=== PATIENT | male | born 1995 | race Hispanic/Latino ===

== ENCOUNTER 2017-06-12 18:51 | Emergency (ER) | payer OTHER ==
[~2017-06-12] VITALS: Ht 170.2 cm; Wt 57.4 kg
[2017-06-12 20:23] LABS: HEMATOCRIT 44.1 % (38.0-50.0); HEMOGLOBIN 16.1 G/DL (12.5-16.6); MCH 28.4 PG (29.0-34.0); MCHC 36.5 G/DL (30.0-36.0); MCV 77.9 FL (86-99); PLATELET COUNT 258 K/uL (156-360); RBC DIS.WIDTH-CV 12.6 % (11.8-14.6); RBC DIS.WIDTH-SD 35.6 % (39-53); RED BLOOD COUNT 5.66 M/uL (4.00-5.50); WHITE BLOOD COUNT 10.8 K/uL (4.1-10.2)
[2017-06-12 20:30] LABS: CHLORIDE 101 mEq/L (99-109); SODIUM 137 mEq/L (136-147)
[2017-06-12 20:32] LABS: GLUCOSE 103 mg/dL (70-99)
[2017-06-12 20:36] LABS: GFR ESTIMATE (CALCULATED) > 59 mL/min/ (58.99-99999)
[2017-06-12 20:37] LABS: UREA NITROGEN (BUN) 17 mg/dL (9-23)
[2017-06-12 21:05] VITALS: BP 118/73
[2017-06-12] MEDS ORDERED: ZOFRAN ODT4 MG PO (23:11)
== END 2017-06-12 21:14 | disposition home or self-care (01) ==
LOC: EME 18:51
PROVIDERS: Physician Assistant
DX: R42 Dizziness and giddiness (principal)
CPT/HCPCS: 70450; 80048; 85027; 99281; 99284; J8540

== ENCOUNTER 2017-06-16 07:42 | Emergency (ER) | payer OTHER ==
[~2017-06-16] VITALS: Ht 167.6 cm; Wt 54.8 kg
[~2017-06-16 07:42] MED LIST: ZOFRAN ODT4 MG PO
[2017-06-16 08:43] LABS: HEMATOCRIT 42.2 % (38.0-50.0); HEMOGLOBIN 15.3 G/DL (12.5-16.6); MCH 28.5 PG (29.0-34.0); MCHC 36.3 G/DL (30.0-36.0); MCV 78.6 FL (86-99); PLATELET COUNT 239 K/uL (156-360); RBC DIS.WIDTH-CV 12.7 % (11.8-14.6); RBC DIS.WIDTH-SD 36.1 % (39-53); RED BLOOD COUNT 5.37 M/uL (4.00-5.50); WHITE BLOOD COUNT 7.5 K/uL (4.1-10.2)
[2017-06-16 08:59] LABS: CHLORIDE 102 mEq/L (99-109); POTASSIUM 4.2 mEq/L (3.7-5.4); SODIUM 138 mEq/L (136-147)
[2017-06-16 09:01] LABS: GLUCOSE 90 mg/dL (70-99)
[2017-06-16 09:04] LABS: CREATININE 0.9 mg/dL (0.6-1.3); GFR ESTIMATE (CALCULATED) > 59 mL/min/ (58.99-99999)
[2017-06-16 09:05] LABS: UREA NITROGEN (BUN) 15 mg/dL (9-23)
[2017-06-16 12:34] LABS: APPEARANCE CLOUDY ((CLEAR)); BILIRUBIN NEGATIVE; BLOOD NEGATIVE; COLOR YELLOW ((YELLOW)); GLUCOSE (STRIP) NEGATIVE; KETONES 5; LEUKOCYTES NEGATIVE; NITRITE NEGATIVE; PROTEIN (STRIP) 30; SPECIFIC GRAVITY 1.025 (1.000-1.030); UROBILINOGEN 0.2 MG/DL (0.2-1.0)
[2017-06-16 12:55] LABS: RED BLOOD CELLS 0-5 /HPF (0-5); WHITE BLOOD CELLS 0-5 /HPF (0-5)
[2017-06-16 12:56] LABS: AMORPHOUS PHOSPHATE CRYSTALS 1+; BACTERIA RARE /HPF; EPITHELIAL CELLS NONE SEEN /HPF; MUCUS 2+ /LPF; UCUL ADDED? NO
[2017-06-16] MEDS ORDERED: REGLAN5 MG PO (13:26)
[2017-06-16] MEDS ORDERED: PHENERGAN25 MG PR (13:26)
[2017-06-16 14:02] VITALS: BP 106/71
== END 2017-06-16 14:04 | disposition home or self-care (01) ==
LOC: EME 07:42
PROVIDERS: Nurse Practitioner Family
DX: G43.909 Migraine, unspecified, not intractable, without status migrainosus (principal); R11.2 Nausea with vomiting, unspecified; R42 Dizziness and giddiness
CPT/HCPCS: 80048; 81003; 85027; 87502; 99281; 99285; J1885

== ENCOUNTER 2017-06-17 23:27 | Emergency (ER) | payer OTHER ==
[~2017-06-17] VITALS: Ht 170.2 cm; Wt 53.1 kg
[~2017-06-17 23:27] MED LIST changes: +PHENERGAN25 MG PR; +REGLAN5 MG PO
[2017-06-18 00:01] LABS: HEMOGLOBIN 14.3 G/DL (12.5-16.6); MCH 28.5 PG (29.0-34.0); MCHC 36.7 G/DL (30.0-36.0); MCV 77.8 FL (86-99); PLATELET COUNT 221 K/uL (156-360); RBC DIS.WIDTH-CV 12.7 % (11.8-14.6); RBC DIS.WIDTH-SD 35.8 % (39-53); RED BLOOD COUNT 5.01 M/uL (4.00-5.50); WHITE BLOOD COUNT 8.6 K/uL (4.1-10.2)
[2017-06-18 00:16] LABS: ALBUMIN 4.1 g/dL (3.2-4.8); CHLORIDE 102 mEq/L (99-109); POTASSIUM 3.7 mEq/L (3.7-5.4); SODIUM 140 mEq/L (136-147)
[2017-06-18 00:18] LABS: GLUCOSE 103 mg/dL (70-99); TOTAL PROTEIN 6.2 g/dL (6.4-8.3)
[2017-06-18 00:20] LABS: TOTAL BILIRUBIN 0.9 mg/dL (0.0-1.0)
[2017-06-18 00:22] LABS: ALKALINE PHOSPHATASE 56 IU/L (3-129); CREATININE 0.9 mg/dL (0.6-1.3); GFR ESTIMATE (CALCULATED) > 59 mL/min/ (58.99-99999)
[2017-06-18 00:23] LABS: UREA NITROGEN (BUN) 14 mg/dL (9-23)
[2017-06-18 00:24] LABS: AST (GOT) 12 IU/L (2-34)
[2017-06-18 00:25] LABS: ALT (GPT) 8 IU/L (3-49); LIPASE 9 U/L (1.0-51.0)
[2017-06-18] MEDS ORDERED: PROTONIX40 MG PO (02:10)
[2017-06-18 02:26] VITALS: BP 122/72
[2017-06-18] MEDS ORDERED: FLEXERIL10 MG PO (23:11)
== END 2017-06-18 02:27 | disposition home or self-care (01) ==
LOC: EME → EDBD 23:27 → EME 23:27
PROVIDERS: Emergency Medicine
DX: R11.2 Nausea with vomiting, unspecified (principal)
CPT/HCPCS: 74177; 80053; 83690; 85027; 99281; 99283; J1630; J7030

== ENCOUNTER 2017-06-18 20:21 | Emergency (ER) | payer OTHER ==
[~2017-06-18] VITALS: Ht 167.6 cm; Wt 52.8 kg
[~2017-06-18 20:21] MED LIST changes: +PROTONIX40 MG PO
[2017-06-18 21:08] LABS: HEMOGLOBIN 16.1 G/DL (12.5-16.6); MCH 28.6 PG (29.0-34.0); MCHC 36.6 G/DL (30.0-36.0); MCV 78.3 FL (86-99); PLATELET COUNT 282 K/uL (156-360); RBC DIS.WIDTH-CV 12.7 % (11.8-14.6); RBC DIS.WIDTH-SD 36.1 % (39-53); RED BLOOD COUNT 5.62 M/uL (4.00-5.50); WHITE BLOOD COUNT 9.3 K/uL (4.1-10.2)
[2017-06-18 21:31] LABS: ALBUMIN 4.7 G/DL (3.2-4.8); CHLORIDE 102 MEQ/L (99-109); POTASSIUM 4.2 MEQ/L (3.7-5.4); SODIUM 138 MEQ/L (136-147); TOTAL BILIRUBIN 0.6 MG/DL (0.0-1.0)
[2017-06-18 21:37] LABS: ALKALINE PHOSPHATASE 57 IU/L (3-129); ALT (GPT) 8 IU/L (3-49); AST (GOT) 14 IU/L (2-34); CREATININE 0.9 MG/DL (0.6-1.3); GFR ESTIMATE (CALCULATED) > 59 mL/min/ (58.99-99999); TOTAL PROTEIN 7.5 G/DL (6.4-8.3); UREA NITROGEN (BUN) 10 mg/dL (9-23)
[2017-06-18 21:39] LABS: GLUCOSE 158 mg/dL (70-99)
[2017-06-18] MEDS ORDERED: FLEXERIL10 MG PO (23:11)
[2017-06-19 00:04] VITALS: BP 123/64
== END 2017-06-19 00:05 | disposition home or self-care (01) ==
LOC: EME 20:21
DX: M62.838 Other muscle spasm (principal)
CPT/HCPCS: 80053; 81003; 85027; 99281; 99284

== ENCOUNTER → 2017-07-22 | Outpatient (CLI) | payer OTHER ==
[~2017-07-22] MED LIST changes: +FLEXERIL10 MG PO
== END | disposition home or self-care (01) ==
LOC: NUC 08:30
DX: K31.84 Gastroparesis (principal); R51 Headache
CPT/HCPCS: 78264; A9541